=== PATIENT | male | born 1930 | race Caucasian/White ===

== ENCOUNTER 2016-05-23 10:54 | Day surgery (SDC) | payer OTHER ==
[2016-05-23] MEDS ORDERED: LIDOCAINE 1% 30 ML SDV ONE (11:23)
[2016-05-23] MEDS ORDERED: LIDOCAINE 1% 30 ML SDV MISC ONE (11:30)
--- NOTE | 2016-05-23 13:10 | CPIP ---
[f rep st] INVASIVE CARDIAC PROCEDURE DATE OF PROCEDURE: 05/23/2016 INDICATIONS: The patient is 85 years old. He has a history of cryptogenic CVA. Previous monitorin g has not indicated any evidence of atrial fibrillation. PROCEDURE: Implantation of a BioMonitor 2 AF. TECHNIQUE: Following informed consent and in the fasting state, the patient was brought to the cart of the [facility]. The chest was prepped and draped in the usual sterile fashion. The 4th interspace was identified by landmarks. Lidocaine was infiltrated into the 4th interspace. Using the 15 blade, a 1 cm incision was made. The incision was then dissected with Metzenbaum scissors. Using the Slinky onik dilator tool, a track was dilated. The Biotronik device was then injected underneath the skin. Manual pressure was held. The pocket was then closed with 3 alpa. DEVICE INFORMATION: The device is a Biotronik BioMonitor 2 AF, reference #[id number], serial #[id number]. DISPOSITION: The patient will be monitored here in the [facility]. He will be discharged home later today . /[id number]/MODL
== END 2016-05-23 13:00 | disposition home or self-care (01) ==
LOC: FCATH 10:54
PROVIDERS: ATTEND Internal Medicine Cardiovascular Disease
PROC: 0JH602Z Insertion of Monitoring Device into Chest Subcutaneous Tissue and Fascia, Open Approach (ICD-10-PCS; principal; 2016-05-23)
DX: R00.2 Palpitations (principal); I10 Essential (primary) hypertension; E78.2 Mixed hyperlipidemia; N40.1 Benign prostatic hyperplasia with lower urinary tract symptoms; Z85.828 Personal history of other malignant neoplasm of skin; Z86.73 Personal history of transient ischemic attack (TIA), and cerebral infarction without residual deficits
CPT/HCPCS: C1764